=== PATIENT | male | born 1960 | race Caucasian/White ===

== ENCOUNTER 2017-05-19 16:33 | Emergency (ER) | payer OTHER ==
[~2017-05-19] VITALS: Ht 170.2 cm; Wt 87.5 kg
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
[~2017-05-19 16:33] MED LIST: ACNE TREATMENT28 GM; ACTOS PO; ASPIR-TRIN325 MG PO; ASPIRIN81 M2 PO; ASPIRIN81 MG PO; ATORVASTATIN CA80 MG PO; BAYER ASPIRIN325 M1 PO; BENZOYL PEROXIDE TD; CARVEDILOL25 MG PO; COREG3.125 MG PO; FOLIC ACID1 MG PO; GABAPENTIN300 MG PO; GLUCOPHAGE500 M1 PO; GLUCOPHAGE500 MG PO; HYCODAN60 ML 5MG/ PO; HYDROCODON-ACE1 EACH PO; LASIX PO; LASIX20 MG PO; LEVAQUIN750 MG PO; LISINOPRIL2.5 MG PO; LISINOPRIL20 MG PO; LORTAB 5/500 TA1 TA1 PO; MAGNESIUM400 M1 PO; METFORMIN HCL500 M1 PO; METFORMIN PO; METOPROLOL TAR25 MG PO; MEVACOR PO; MULTI VITAMIN1 EACH PO; MULTIVITAMIN1 UDCAP PO; NAPROSYN500 MG PO; NEURONTIN300 MG PO; NITROSTAT0.4 MG SL; PHENERGAN DM1 ML PO; PRAVASTATIN SOD40 MG PO; PRINIVIL40 MG PO; TERBINAFINE (L250 M1 PO; THIAMINE HCL100 M1 DOB; VOLTAREN75 MG PO; ZESTORETIC 10/11 TAB PO; ZESTRIL5 MG PO; ZITHROMAX PO
== END 2017-05-19 18:41 | disposition home or self-care (01) ==
LOC: SED 16:33
DX: S02.40FA Zygomatic fracture, left side, initial encounter for closed fracture (principal); E11.9 Type 2 diabetes mellitus without complications; I11.0 Hypertensive heart disease with heart failure; I50.9 Heart failure, unspecified; I25.2 Old myocardial infarction; Z79.82 Long term (current) use of aspirin; Z79.899 Other long term (current) drug therapy; W22.8XXA Striking against or struck by other objects, initial encounter; Y92.009 Unspecified place in unspecified non-institutional (private) residence as the place of occurrence of the external cause
CPT/HCPCS: 70450; 70486; 99284